=== PATIENT | male | born 1965 | race Two or more races ===

== ENCOUNTER → 2018-03-31 | Outpatient (REF) ==
--- NOTE | 2018-03-31 17:38 | RADIOLOGY IMAGING REPORT ---
FACILITY: [facility] - [place] PATIENT NAME: Michael Ferro : 1965 MR: [id number] V: [id number] EXAM DATE: ORDERING PHYSICIAN: REGINE GARVEY TECHNOLOGIST: Location: Patient: Michael Ferro : 1965 Visit/Account:[id number] Date of Sevice: 03/31/2018 HIP RIGHT Indication: Hip pain. Comparison: None available Findings: There is no acute fracture or dislocation of the right hip. The pelvis is intact. No significant degenerative changes are identified. IMPRESSION: 1. Negative right hip Report Dictated By: John Justice at 03/31/2018 5:34 PM Report E-Signed By: John Justice at 03/31/2018 5:35 PM WSN:[id number]
== END ==
LOC: RAD 15:09
PROVIDERS: ATTEND Nurse Practitioner
DX: M25.551 Pain in right hip (principal)